=== PATIENT | female | born 1945 | race Caucasian/White ===

== ENCOUNTER → 2017-04-23 | Outpatient (REF) | payer BC, MEDICARE ==
[~2017-04-23] MED LIST: /AMLO25TA PO; /BACL20TA PO; CIPR500T89 PO; INSULANT SC; LISI40TAB PO; MULTTAB4 PO; TYLE325T5 PO; VITA-122 PO; VITATAB11 PO
== END ==
LOC: M LAB REF 16:43
PROVIDERS: ATTEND Family Medicine
DX: Z01.89 Encounter for other specified special examinations (principal)

== ENCOUNTER → 2020-06-22 | Outpatient (CLI) | payer MEDICARE ==
[~2020-06-22] MED LIST changes: -/AMLO25TA PO; -/BACL20TA PO; +BACL1TAB9 PO; +LISI40TA52 PO; -LISI40TAB PO; +NORV2TAB PO
== END ==
LOC: M PT 12:27
PROVIDERS: ATTEND Family Medicine
DX: G35 Multiple sclerosis (principal)

== ENCOUNTER → 2020-06-30 | Outpatient (REF) | payer MEDICARE ==
[2020-06-30 18:00] LABS: RHEUMATOID FACTOR QUANT < 10.0 IU/ML (<15.0); TOTAL PROTEIN 6.9 GM/DL (6.4-8.2)
[2020-06-30 18:10] LABS: VITAMIN B12 LEVEL 260 PG/ML
[2020-06-30 18:12] LABS: FOLATE 16.2 NG/ML
[2020-07-01 11:04] LABS: ALBUMIN % 49.3 % (55.8-66.1); ALPHA-1-GLOBULIN % 4.8 % (2.9-4.9); ALPHA-1-GLOBULINS 0.33 GM/DL (0.17-0.41); ALPHA-2-GLOBULINS 0.88 GM/DL (0.42-0.99); ALPHA-2-GLOBULINS % 12.8 % (7.1-11.8); BETA-1-GLOBULINS % 7.3 % (4.7-7.2); BETA-2-GLOBULINS 0.49 GM/DL (0.19-0.55); BETA-2-GLOBULINS % 7.1 % (3.2-6.5); GAMMA GLOBULIN % 18.7 % (11.1-18.8); GAMMA GLOBULINS 1.29 GM/DL (0.65-1.58)
[2020-07-05 17:09] LABS: ANCA-ATYPICAL <1:20 titer (Neg:<1:20); ANTI DOUBLE STRAND-DNA AB <1 IU/mL (0-9); ANTINUCLEAR ANTIBODIES DIRECT Positive (Negative); CYTOPLASMIC NEUTROP AB ANCA-C <1:20 titer (Neg:<1:20); Lyme Disease IgG/IgM Antibodie <0.91 ISR (0.00-0.90); Lyme Disease IgM Ab Quantitati <0.80 index (0.00-0.79); PERINUCLEAR AB ANCA-P <1:20 titer (Neg:<1:20); RNP ANTIBODIES <0.2 AI (0.0-0.9); SJOGREN'S ANTI SS-A <0.2 AI (0.0-0.9); SJOGREN'S ANTI SS-B <0.2 AI (0.0-0.9); SMITH ANTIBODIES <0.2 AI (0.0-0.9); VITAMIN B6,PYRIDOXAL PHOSPHATE 11.1 ug/L (2.0-32.8); VITAMIN E(ALPHA TOCOPHEROL) 17.8 mg/L (9.0-29.0); VITAMIN E(GAMMA TOCOPHEROL) 0.9 mg/L (0.5-4.9)
== END ==
LOC: M LAB REF 17:12
PROVIDERS: ATTEND Family Medicine
DX: G60.9 Hereditary and idiopathic neuropathy, unspecified (principal)

== ENCOUNTER → 2021-05-19 | Outpatient (REF) | payer MEDICARE | LOC: M LAB REF 17:20 | PROVIDERS: ATTEND Family Medicine | DX: N31.9 Neuromuscular dysfunction of bladder, unspecified (principal) ==

== ENCOUNTER 2023-02-01 11:21 | Emergency (ER) | payer MEDICARE ==
[~2023-02-01] VITALS: Ht 160 cm; Wt 101.1 kg
[2023-02-01] MEDS ORDERED: BACL1TAB9 (11:40)
[2023-02-01] MEDS ORDERED: LISI40TA4 (11:40)
[2023-02-01] MEDS ORDERED: ACETAMINOPHEN TAB 650MG DOSE (2X325MG) PO ONE (13:05)
[2023-02-01] MEDS ORDERED: BOOSTRIX VACCINE (TETANUS/DIPHTH/ACEL. PERTUSSIS) 0.5ML SYR IM.IMMUN ONE (13:05)
[2023-02-01 14:21] VITALS: BP 164/88
== END 2023-02-01 14:32 | disposition home or self-care (01) ==
LOC: EDBD 11:21 → M ED 11:21
DX: S01.01XA Laceration without foreign body of scalp, initial encounter (principal); V00.811A Fall from moving wheelchair (powered), initial encounter; Y92.019 Unspecified place in single-family (private) house as the place of occurrence of the external cause; Y93.89 Activity, other specified; Y99.8 Other external cause status; I10 Essential (primary) hypertension; E11.9 Type 2 diabetes mellitus without complications; Z88.0 Allergy status to penicillin; Z88.2 Allergy status to sulfonamides; Z88.8 Allergy status to other drugs, medicaments and biological substances; Z79.4 Long term (current) use of insulin; Z79.899 Other long term (current) drug therapy

== ENCOUNTER 2023-02-08 15:37 | Emergency (ER) | payer MEDICARE ==
[~2023-02-08] VITALS: Ht 160 cm; Wt 81.8 kg
[~2023-02-08 15:37] MED LIST changes: +BACL1TAB9; +LISI40TA4
[2023-02-08] MEDS ORDERED: MORPHINE 4 MG/ML 1ML VIAL IV PRN (20:30)
[2023-02-08] MEDS ORDERED: ONDANSETRON 4MG 2ML VIAL IV ONE (20:30)
[2023-02-08 21:05] LABS: BASO # 0.1 10^3/uL (0.0-0.2); BASO % 0.4 % (0.0-1.0); EOS # 0.4 10^3/uL (0.0-0.5); EOS % 3.3 % (0.0-3.0); HEMATOCRIT 39.3 % (36.0-47.0); LYMPH # 1.9 10^3/uL (1.5-5.0); LYMPH % 15.4 % (24.0-44.0); MEAN CORPUSCULAR HEMOGLOBIN 24.3 pg (27.0-33.0); MEAN CORPUSCULAR HGB CONC 30.5 g/dl (32.0-36.5); MEAN CORPUSCULAR VOLUME 79.7 fl (80.0-96.0); MONO # 1.3 10^3/uL (0.0-0.8); MONO % 10.5 % (2.0-8.0); NEUTROPHILS # 8.5 10^3/uL (1.5-8.5); NEUTROPHILS % 70.1 % (36.0-66.0); PLATELET COUNT, AUTOMATED 410 10^3/uL (150-450); RED BLOOD COUNT 4.93 10^6/uL (4.00-5.40); WHITE BLOOD COUNT 12.2 10^3/uL (4.0-10.0)
[2023-02-08 21:16] LABS: INR 0.91; PROTHROMBIN TIME 12.5 SECONDS (12.5-14.5)
[2023-02-08 21:17] LABS: PARTIAL THROMBOPLASTIN TIME 30.6 SECONDS (24.8-34.2)
[2023-02-08 21:23] LABS: BLOOD UREA NITROGEN 15 MG/DL (9-23); CALCIUM LEVEL 8.5 MG/DL (8.3-10.6); CARBON DIOXIDE LEVEL 30 MMOL/L (20-31); CHLORIDE LEVEL 99 MMOL/L (98-107); CREATININE FOR GFR 0.52 MG/DL (0.55-1.30); GLOMERULAR FILTRATION RATE > 60.0 (>39); GLUCOSE, FASTING 101 MG/DL (74-106); POTASSIUM SERUM 4.7 MMOL/L (3.5-5.1); SODIUM LEVEL 135 MMOL/L (136-145)
[2023-02-08] MEDS ORDERED: PERC5TAB12 PO (21:38)
[2023-02-08] MEDS ORDERED: OXYCODONE/APAP 5MG/325MG(HOME DOSE PACK) PO ONE (21:40)
[2023-02-08 21:52] VITALS: BP 160/74
== END 2023-02-08 22:21 | disposition home or self-care (01) ==
LOC: M ED 15:37
DX: S72.402A Unspecified fracture of lower end of left femur, initial encounter for closed fracture (principal); V00.811A Fall from moving wheelchair (powered), initial encounter; Y92.89 Other specified places as the place of occurrence of the external cause; Y93.89 Activity, other specified; Y99.8 Other external cause status; E11.9 Type 2 diabetes mellitus without complications; G35 Multiple sclerosis; N31.2 Flaccid neuropathic bladder, not elsewhere classified; Z88.0 Allergy status to penicillin; Z88.2 Allergy status to sulfonamides; Z88.8 Allergy status to other drugs, medicaments and biological substances; Z79.4 Long term (current) use of insulin; Z79.899 Other long term (current) drug therapy

== ENCOUNTER → 2023-03-12 | Outpatient (CLI) | payer MEDICARE ==
[~2023-03-12] MED LIST changes: +PERC5TAB12 PO
== END ==
LOC: M SOG 09:23
PROVIDERS: ATTEND Physician Assistant
DX: S72.402A Unspecified fracture of lower end of left femur, initial encounter for closed fracture (principal); Z53.9 Procedure and treatment not carried out, unspecified reason

== ENCOUNTER → 2023-03-19 | Outpatient (CLI) | payer MEDICARE | LOC: M RAD 10:55 | PROVIDERS: ATTEND Physician Assistant | DX: S72.302A Unspecified fracture of shaft of left femur, initial encounter for closed fracture (principal); X58.XXXA Exposure to other specified factors, initial encounter; Y92.9 Unspecified place or not applicable; Y93.9 Activity, unspecified; Y99.9 Unspecified external cause status ==

== ENCOUNTER → 2023-05-11 | Outpatient (CLI) | payer MEDICARE | LOC: M LAB 11:10 → M RAD 11:10 | PROVIDERS: ATTEND Orthopaedic Surgery Hand Surgery | DX: S72.402D Unspecified fracture of lower end of left femur, subsequent encounter for closed fracture with routine healing (principal); S82.002D Unspecified fracture of left patella, subsequent encounter for closed fracture with routine healing ==

== ENCOUNTER 2023-12-01 19:33 | Emergency (ER) | payer MEDICARE ==
[~2023-12-01] VITALS: Ht 160 cm; Wt 95.5 kg
[2023-12-01 22:01] LABS: BASO % 0.3 % (0.0-1.0); EOS # 0.2 10^3/uL (0.0-0.5); EOS % 2.4 % (0.0-3.0); HEMATOCRIT 41.3 % (36.0-47.0); HEMOGLOBIN 12.9 g/dl (12.0-15.5); LYMPH # 1.2 10^3/uL (1.5-5.0); LYMPH % 12.3 % (24.0-44.0); MEAN CORPUSCULAR HEMOGLOBIN 24.5 pg (27.0-33.0); MEAN CORPUSCULAR HGB CONC 31.2 g/dl (32.0-36.5); MEAN CORPUSCULAR VOLUME 78.5 fl (80.0-96.0); MONO # 0.8 10^3/uL (0.0-0.8); MONO % 7.8 % (2.0-8.0); NEUTROPHILS # 7.7 10^3/uL (1.5-8.5); PLATELET COUNT, AUTOMATED 314 10^3/uL (150-450); RED BLOOD COUNT 5.26 10^6/uL (4.00-5.40)
[2023-12-02 00:55] LABS: VENOUS BASE EXCESS 5.5 (-2.0-2.0); VENOUS HCO3 31.2 MMOL/L (23.0-27.0); VENOUS O2 SATURATION 90.6 % (60.0-80.0); VENOUS PARTIAL PRESSURE CO2 49.8 mmHg (38.0-50.0); VENOUS PARTIAL PRESSURE O2 56.7 mmHg (30.0-50.0); VENOUS PH 7.415 UNITS (7.330-7.430); VENOUS STANDARD HCO3 29.2 MMOL/L; VENOUS TOTAL CO2 32.7 MMOL/L (24.0-28.0)
[2023-12-02] MEDS: hydrALAZINE 20MG/ML 1ML VIAL IV ONE (00:55)
[2023-12-02 01:20] VITALS: BP 175/75
[2023-12-02] MEDS: amLODIPine 5 MG TAB PO ONE (01:20)
[2023-12-02 01:23] LABS: ALKALINE PHOSPHATASE 120 U/L (46-116); ALT/SGPT 24 U/L (7.0-40); AST/SGOT 45 U/L (<34); BILIRUBIN,DIRECT < 0.1 MG/DL (<0.4); BILIRUBIN,TOTAL 0.4 MG/DL (0.3-1.2); BLOOD UREA NITROGEN 17 MG/DL (9-23); CARBON DIOXIDE LEVEL 29 MMOL/L (20-31); CHLORIDE LEVEL 99 MMOL/L (98-107); CK-MB VALUE MASS 3.6 NG/ML (<3.6); CREATININE FOR GFR 0.37 MG/DL (0.55-1.30); GLOMERULAR FILTRATION RATE > 60.0 (>39); GLUCOSE, FASTING 93 MG/DL (74-106); POTASSIUM SERUM 4.7 MMOL/L (3.5-5.1); SODIUM LEVEL 134 MMOL/L (136-145); TOTAL PROTEIN 7.6 G/DL (5.7-8.2)
[2023-12-02 01:27] LABS: THYROXINE (T4) 10.8 UG/DL (4.5-10.9)
[2023-12-02 01:28] LABS: THYROID STIMULATING HORMONE 2.218 uIU/ML (0.55-4.78)
[2023-12-02 01:31] LABS: CPK CREATINE PHOSPHOKINASE 120 U/L (34-145)
[2023-12-02 01:41] LABS: INR 0.97; PROTHROMBIN TIME 12.6 SECONDS (12.5-14.5)
[2023-12-02 02:47] LABS: CK-MB VALUE MASS 2.5 NG/ML (<3.6); MB/CK RELATIVE INDEX 3.37 (< OR =4)
[2023-12-02] MEDS ORDERED: COMBAER6 INH (04:43)
[2023-12-02] MEDS: COMBIVENT RESPIMAT 100-20MCG INHALER 4GM INH STA (04:44)
[2023-12-02] MEDS ORDERED: AMLO25TA PO (04:56)
[2023-12-02 05:00] VITALS: BP 133/63; TEMP 97.7; O2SAT 93
== END 2023-12-02 05:00 | disposition home or self-care (01) ==
LOC: M ED 19:33
DX: R06.00 Dyspnea, unspecified (principal); I16.0 Hypertensive urgency; R79.89 Other specified abnormal findings of blood chemistry; Z88.0 Allergy status to penicillin; Z88.2 Allergy status to sulfonamides; Z88.8 Allergy status to other drugs, medicaments and biological substances
CPT/HCPCS: 71045; 80048; 80076; 82550; 82553; 82803; 83605; 83880; 84436; 84443; 84484; 85025; 85610; 87486; 87581; 87633; 87798; 93005; 94640; 96374; 99284; J0360